=== PATIENT | male | born 1990 | race Caucasian/White ===

== ENCOUNTER 2018-01-22 17:00 | Emergency (ER) | payer OTHER ==
[~2018-01-22] VITALS: Ht 172.7 cm; Wt 90.7 kg
[2018-01-22 17:09] VITALS: Ht 172.7 cm; Wt 90.7 kg
[2018-01-22 18:37] VITALS: BP 128/73
== END 2018-01-22 19:15 | disposition home or self-care (01) ==
LOC: ED 17:00
DX: S70.02XA Contusion of left hip, initial encounter (principal); V09.9XXA Pedestrian injured in unspecified transport accident, initial encounter; Y93.89 Activity, other specified; Y92.89 Other specified places as the place of occurrence of the external cause; Y99.8 Other external cause status
CPT/HCPCS: J1885